=== PATIENT | female | born 1940 | race Caucasian/White ===

== ENCOUNTER 2019-02-23 10:34 | Day surgery (SDC) | payer OTHER ==
[2019-02-23] MEDS ORDERED: FERRIC CARBOXYMALTOSE 750 MG in SODIUM CHLORIDE 250 ML IVPB ONE (11:00)
[2019-02-23 16:03] VITALS: BP 141/63; PULSE 73; TEMP 97.8
== END 2019-02-23 13:10 | disposition home or self-care (01) ==
LOC: JINFUSION 10:34
PROVIDERS: ATTEND Internal Medicine Gastroenterology
DX: D64.9 Anemia, unspecified (principal)
CPT/HCPCS: 96365; J1439

== ENCOUNTER 2019-03-02 11:20 | Day surgery (SDC) | payer OTHER ==
[~2019-03-02 11:20] MED LIST: FERRIC CARBOXYMALTOSE 750 MG in SODIUM CHLORIDE 250 ML IVPB ONE
[2019-03-02 12:44] VITALS: TEMP 98.1
[2019-03-02 13:19] VITALS: BP 133/72; PULSE 74
== END 2019-03-02 13:19 | disposition home or self-care (01) ==
LOC: JINFUSION 11:20
PROVIDERS: ATTEND Internal Medicine Gastroenterology
PROC: 3E033GC Introduction of Other Therapeutic Substance into Peripheral Vein, Percutaneous Approach (ICD-10-PCS; principal; 2019-03-02)
DX: D64.9 Anemia, unspecified (principal)
CPT/HCPCS: 96365; J1439